=== PATIENT | male | born 1980 | race Caucasian/White ===

== ENCOUNTER 2021-08-09 04:54 | Emergency (ER) | payer BC ==
--- NOTE | 2021-08-09 05:06 | ED Physician Documentation ---
PD HPI UPPER EXT INJURY - Stated complaint Stated Complaint: R FINGER DOG BITE - Chief complaint Chief Complaint: Laceration - History obtained from History obtained from: Patient - History of Present Illness Location: Right, Finger Type of injury: Other (His and his girlfriend's dogs started fighting during the night and he reached out to stop them and got bit in the finger. He did clean up the wound. However there is punctures full-thickness through the skin and he is concerned of infection.) Where injury occurred: Home (friend's home where he is visiting) Timing - onset: How many hours ago (1), Today Timing - details: Abrupt onset Worsened by: Palpating. No: Moving Associated symptoms: No: Weakness, Numbness Review of Systems Skin: reports: Laceration (s) Neurologic: denies: Focal weakness, Numbness PD PAST MEDICAL HISTORY - Past Medical History Cardiovascular: None Endocrine/Autoimmune: None - Present Medications Home Medications: Ambulatory Orders Medication Instructions Recorded Confirmed Amox/Clav 875/125 [Augmentin] 1 each PO BID 5 Days #10 tablet 08/09/21 - Allergies Allergies/Adverse Reactions: Allergies Allergy/AdvReac Type Severity Reaction Status Date / Time No Known Drug Allergies Allergy Verified 08/09/21 04:59 PD ED PE NORMAL - Vitals Vital signs reviewed: Yes - General General: Alert and oriented X 3, No acute distress, Well developed/nourished - Derm Derm: Normal color, Warm and dry - Extremities Extremities: Other (The right ring finger has a avulsion type laceration near the base of the nail without any obvious foreign body or active bleeding. There is also a puncture wound on the dorsal same finger near the DIP joint. He has range of motion of the finger.) - Neuro Neuro: No motor deficit, No sensory deficit Results - Vitals Vitals: Vital Signs - 24 hr 08/09/21 04:59 Temperature 36.2 C L Heart Rate 78 Respiratory 17 Rate Blood Pressure 137/92 H O2 Saturation 99 Oxygen O2 Source Room air Departure - Departure Disposition: 01 Home, Self Care Clinical Impression: Dog bite of finger Qualifiers: Encounter type: initial encounter Qualified Code(s): S61.259A - Open bite of unspecified finger without damage to nail, initial encounter; W54.0XXA - Bitten by dog, initial encounter Condition: Stable Record reviewed to determine appropriate education?: Yes Instructions: ED Bite Dog Prescriptions: Amox/Clav 875/125 [Augmentin] 1 each PO BID 5 Days #10 tablet Comments: Clean the wound with soap and water couple times a day and apply some ointment lightly to the area. The wound should heal up okay. Bandage them to protect and keep them clean. Recheck if signs of infection. To reduce the chance of infection from bite wounds, we commonly would prescribe Augmentin antibiotic twice daily for 5 days. I transmitted this to [facility] in [place].
[2021-08-09] MEDS ORDERED: AMOX/CLAV 875 MG/125 MG TABLET PO STA (05:10)
[2021-08-09 05:28] VITALS: BP 135/89
== END 2021-08-09 05:28 | disposition home or self-care (01) ==
LOC: ED 04:54
DX: S61.259A Open bite of unspecified finger without damage to nail, initial encounter (principal); S61.214A Laceration without foreign body of right ring finger without damage to nail, initial encounter; W54.0XXA Bitten by dog, initial encounter; Y93.K9 Activity, other involving animal care; Y92.009 Unspecified place in unspecified non-institutional (private) residence as the place of occurrence of the external cause
CPT/HCPCS: 99282; 99283; A9270